=== PATIENT | female | born 1945 | race African-American/Black ===

== ENCOUNTER 2019-08-13 19:09 | Emergency (ER) | payer MEDICARE, OTHER ==
[~2019-08-13] VITALS: Ht 165.1 cm; Wt 63.5 kg
[2019-08-13 22:07] VITALS: BP 148/79
== END 2019-08-13 22:07 | disposition home or self-care (01) ==
LOC: ED 19:09
DX: M54.5 Low back pain (principal); G89.29 Other chronic pain; I10 Essential (primary) hypertension
CPT/HCPCS: J3010